=== PATIENT | male | born 1985 ===

== ENCOUNTER 2016-10-18 21:13 | Emergency (ER) | payer BC ==
[2016-10-18 23:11] VITALS: BP 125/64
--- NOTE | 2016-10-19 00:15 | EDM.PDOC ---
ED HPI GENERAL MEDICAL PROBLEM - General Chief Complaint: ENT Problem Stated Complaint: HARD TO BREATH AND SWALLOW, [id number] Time Seen by Provider: 10/18/16 22:45 Source of Information: Reports: Patient History Limitations: Reports: No Limitations - History of Present Illness INITIAL COMMENTS - FREE TEXT/NARRATIVE: c/o increasing difficulty swallowing today, started last evening. Hx esophageal stricture and dilatation a few years ago. Admits to feeling anxious with symptoms. Admits to taking one of his 's xanax to alleviate sx which did help untill after work today and symptoms increased. [place] SOB this chance with this. Sx improving since arrival. Is able to eat soup and liquids but afraid to eat solids[facility]. . Onset: Gradual Duration: Improving - Related Data Allergies Allergy/AdvReac Type Severity Reaction Status Date / Time Sulfa (Sulfonamide Allergy Cannot Verified 10/18/16 21:32 Antibiotics) Remember Home Meds: Home Meds Cetirizine HCl [Zyrtec] 10 mg PO DAILY 10/18/16 [History] Omeprazole 20 mg PO DAILY 10/18/16 [History] Past Medical History - Past Surgical History Other HEENT Surgeries/Procedures: EGD and balloons placed to releave food stuck in throat Social & Family History - Tobacco Use Smoking Status *Q: Never Smoker Second Hand Smoke Exposure: No - Recreational Drug Use Recreational Drug Use: No ED ROS ENT - Review of Systems Review Of Systems: See Below Constitutional: Reports: No Symptoms HEENT: Reports: No Symptoms Respiratory: Reports: Shortness of Breath Cardiovascular: Reports: No Symptoms GI/Abdominal: Reports: Other (difficulty swallowing) : Reports: No Symptoms Musculoskeletal: Reports: No Symptoms Skin: Reports: No Symptoms Neurological: Reports: No Symptoms Psychiatric: Reports: Anxiety ED EXAM, ENT - Physical Exam Exam: See Below Exam Limited By: No Limitations General Appearance: Alert, Anxious, Mild Distress Eye Exam: Bilateral Eye: EOMI Ears: Normal External Exam, Normal TMs Nose: Normal Inspection, Normal Mucousa Mouth/Throat: Normal Inspection, Normal Gums, Normal Oropharynx Head: Atraumatic, Normocephalic Neck: Normal Inspection, Non-Tender, Full Range of Motion. No: Lymphadenopathy (L), Lymphadenopathy (R) Respiratory/Chest: No Respiratory Distress, Lungs Clear, Normal Breath Sounds, No Accessory Muscle Use. No: Respiratory Distress Cardiovascular: Normal Peripheral Pulses, Regular Rate, Rhythm GI/Abdominal: Normal Bowel Sounds, Soft, Non-Tender. No: No Distention, Guarding Extremities: Normal Inspection, Normal Range of Motion Neurological: Alert, Oriented, Normal Cognition, Normal Gait Psychiatric: Anxious Skin: Warm, Dry, Intact, Normal Color Course - Vital Signs Last Recorded V/S: Last Vital Signs Temp 97.4 F 10/18/16 23:10 Pulse 64 10/18/16 23:10 Resp 18 10/18/16 23:10 BP 125/64 10/18/16 23:10 Pulse Ox 98 10/18/16 23:10 - Orders/Labs/Meds Meds: Medications Discontinued Medications Generic Name Dose Route Start Last Admin Trade Name Laurie PRN Reason Stop Dose Admin Alprazolam Confirm 10/19/16 00:25 10/19/16 00:28 Xanax Administered 10/19/16 00:26 Not Given Dose 0.5 mg .ROUTE .STK-MED ONE Alprazolam 0.5 mg 10/19/16 00:25 Xanax PO 10/19/16 00:26 .STK-MED ONE - Re-Assessments/Exams Free Text/Narrative Re-Assessment/Exam: 10/20/16 04:26 Able to drink water without difficulty. Instructed to follwo up with Primary provider for further evaluation and potential referral for EGD. Requesting Rx of xanax for anxiety. Informed patient that he should see PCP for ongoing management of anxiety. xanax one tablet given for tonight. Departure - Departure Time of Disposition: 00:09 Disposition: Home, Self-Care 01 Condition: Fair Clinical Impression: Anxiety, History of esophageal stricture - Discharge Information Referrals: PCP,Unobtain [Primary Care Provider] - Forms: ED Department Discharge Additional Instructions: liquids with meals chew food well follow up with primary care xanax 0.5mg one daily as needed for severe anxiety #1
[2016-10-19] MEDS ORDERED: ALPRAZolam 0.5 MG Tab PO ONE (00:25)
[2016-10-19] MEDS ORDERED: ALPRAZolam 0.5 MG Tab ONE (00:25)
== END 2016-10-19 00:32 | disposition home or self-care (01) ==
LOC: DL.ED 21:13
DX: F41.9 Anxiety disorder, unspecified (principal); R13.10 Dysphagia, unspecified; Z98.890 Other specified postprocedural states; Z88.2 Allergy status to sulfonamides; Z79.899 Other long term (current) drug therapy
CPT/HCPCS: 99283; A9270